=== PATIENT | female | born 1945 | race Caucasian/White ===

== ENCOUNTER → 2020-01-16 | Outpatient (CLI) | payer MEDICARE ==
[2020-01-16 15:47] VITALS: BP 148/82; PULSE 72; RESP 16; TEMP 98.6
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
== END | disposition home or self-care (01) ==
LOC: WWCWWP 14:56
PROVIDERS: ATTEND Surgery
DX: Z53.9 Procedure and treatment not carried out, unspecified reason (principal)

== ENCOUNTER 2020-02-04 08:22 | Day surgery (SDC) | payer MEDICARE ==
[2020-01-30 14:16] VITALS: BMI 27.5
[~2020-02-04 08:22] MED LIST: LACTATED RINGERS 1,000 ML IV SCH; LIDOCAINE 1% (10MG/ML) FOR IV START INTRADERMA PRN
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
[2020-02-04 08:45] VITALS: TEMP 97.7
[2020-02-04] MEDS ORDERED: PROPOFOL 10 MG/ML 20 ML VIAL IV ONE (09:19)
--- NOTE | 2020-02-04 09:56 | P.PCN ---
Date of Procedure: 02/04/20 Description of Procedure: PREOPERATIVE DIAGNOSIS: Colonoscopy screening. POSTOPERATIVE DIAGNOSIS: Colonoscopy screening. Internal hemorrhoids, grade 4 External hemorrhoids, grade 4 OPERATION: Colonoscopy to the cecum, ileocecal valve and appendiceal orifice. SURGEON: Tammy Allen MD. ANESTHESIA: MAC. INDICATIONS: The patient is a 74-year-old female who presents for colonoscopy screening. Last colonoscopy over 17 years ago. Benefits and risks were described and informed consent was obtained. DESCRIPTION OF PROCEDURE: The patient had undergone Suprep. She had been brought into the operating room and laid in the left lateral decubitus position. After adequate intravenous sedation, the rectum was examined with 2% lidocaine jelly. External hemorrhoids were encountered. The rectal tone was within normal limits. No lesions were palpated in the rectal vault. An Olympus colonoscope was advanced until the cecum, ileocecal valve and appendiceal orifice were clearly viewed. The prep was excellent. No scattered diverticulosis was encountered. No colonic polyps were found. No evidence of focal colitis was found. Retroflexion of the scope demonstrated grade 4 internal hemorrhoids without active bleeding or inflammation. The colon was desufflated. The patient had tolerated the procedure well. Withdrawal time was over 6 minutes. FINDINGS: Aronchick preparation quality scale 1 (1-5) Internal hemorrhoids, grade 4 External prolapsed hemorrhoids, grade 4 No arteriovenous malformations. No adenomatous polyps. No focal colitis. RECOMMENDATIONS: Lower endoscopy as needed Plan - Discharge Summary Discharge Rx Participant: No New Discharge Prescriptions: No Action Atorvastatin [Lipitor] 10 mg PO HS lisinopriL [Zestril] 20 mg PO DAILY Discharge Medication List Atorvastatin [Lipitor] 10 mg PO HS 01/16/20 [History] lisinopriL [Zestril] 20 mg PO DAILY 01/16/20 [History] Follow up Appointment(s)/Referral(s): Tammy Allen MD [STAFF PHYSICIAN] - As Needed Patient Instructions/Handouts: *Surgery [facility] - (Anesthesia) Endoscopy Discharge Instructions Activity/Diet/Wound Care/Special Instructions: Colonoscopy as needed Discharge Disposition: HOME SELF-CARE
[2020-02-04 10:10] VITALS: RESP 18
[2020-02-04 10:49] VITALS: BP 162/72; PULSE 66
== END 2020-02-04 11:24 | disposition home or self-care (01) ==
LOC: ORWHC2ENDO 08:22
PROVIDERS: ATTEND Surgery Plastic and Reconstructive Surgery
DX: Z12.11 Encounter for screening for malignant neoplasm of colon (principal); K64.4 Residual hemorrhoidal skin tags; K64.3 Fourth degree hemorrhoids; I10 Essential (primary) hypertension; E78.5 Hyperlipidemia, unspecified; M19.90 Unspecified osteoarthritis, unspecified site; Z86.010 Personal history of colon polyps; Z98.890 Other specified postprocedural states; Z87.891 Personal history of nicotine dependence; Z79.899 Other long term (current) drug therapy; Z87.19 Personal history of other diseases of the digestive system
CPT/HCPCS: G0105; J2704